=== PATIENT | female | born 1960 | race Caucasian/White ===

== ENCOUNTER 2021-04-21 07:16 | Outpatient (CLI) | payer BC, SELFPAY ==
[2021-04-21 07:32] LABS: Basophils Absolute Auto 0.05 K/mm3 (0.00-0.10); Basophils Percent Auto 0.7 % (0.0-1.0); Eosinophils Absolute Auto 0.32 K/mm3 (0.02-0.50); Eosinophils Percent Auto 4.7 % (1.0-6.0); Hematocrit 44.1 % (35.0-49.0); Hemoglobin 14.3 g/dL (12.0-15.0); Immature Granulocyte Absolute 0.01 K/mm3 (0.00-0.00); Immature Granulocyte Percent A 0.1 % (0.0-0.0); Lymphocytes Absolute Auto 2.36 K/mm3 (1.10-4.50); Lymphocytes Percent Auto 34.5 % (18.0-42.0); Mean Corpuscular HGB Conc 32.4 g/dL (32.0-36.0); Mean Corpuscular Hemoglobin 28.5 pg (27.0-31.0); Mean Corpuscular Volume 87.8 fL (78.0-102.0); Mean Platelet Volume 9.6 fl (9.2-11.8); Monocytes Absolute Auto 0.44 K/mm3 (0.10-0.90); Monocytes Percent Auto 6.4 % (2.0-11.0); Neutrophils Absolute Auto 3.7 K/mm3 (1.7-7.2); Neutrophils Percent Auto 53.6 % (50.0-70.0); Platelet Count Result 207 K/mm3 (150-420); Red Blood Count 5.02 M/mm3 (4.20-5.40); Red Cell Distribution Width 13.2 % (11.6-14.4); White Blood Count 6.8 K/mm3 (4.8-10.8)
[2021-04-21 07:33] LABS: Appearance Urine Clear (Clear); Bilirubin Urine Negative (Negative); Color Urine Light Yellow (Yellow); Glucose Urine UA Negative (Negative); Ketones Urine Negative (Negative); Leukocyte Esterase Ur 1+ LEU/UL (Negative); Nitrate Urine Negative (Negative); Protein Urine Negative (Negative); Specific Grav Ur >= 1.030 (1.010-1.020); Urobilinogen Urine 0.2 mg/dL (0.2-1.0); pH Urine 5.5 (5.0-8.0)
[2021-04-21 07:35] LABS: Add Urine Microscopic? YES; Blood Urine Trace-Intact (Negative)
[2021-04-21 07:51] LABS: Bacteria Urine Trace /hpf; RBC Urine 0-2 /hpf (0-2); Squamous Epithelial Cell Urine Rare /hpf (Few); WBC Urine 0-3 /hpf (0-3)
[2021-04-21 08:38] LABS: Alanine Aminotransferase 28 U/L (14-59); Albumin Level 3.6 g/dL (3.4-5.0); Alkaline Phosphatase 83 U/L (46-116); Anion Gap 8 mmol/L (8-16); Aspartate Amino Transferase 20 U/L (15-37); Bilirubin,Total 0.7 mg/dL (0.00-1.00); Blood Urea Nitrogen 17 mg/dL (7-18); Calcium 8.6 mg/dL (8.5-10.1); Carbon Dioxide 31 mmol/L (21-32); Chloride 106 mmol/L (98-108); Cholesterol 153 mg/dL (0-200); Estimated Glomerular Filt Rate 54; Glucose 92 mg/dL (70-99); HDL Direct 45 mg/dL (40-60); LDL Cholesterol Calculated 87 mg/dL (<130); Osmolality Calculated 301 mOsm/kg (285-295); Potassium 4.3 mmol/L (3.5-5.1); Sodium 145 mmol/L (136-145); Thyroid Stimulating Hormone 3.27 uIU/mL (0.36-3.74); Total Protein 6.9 g/dL (6.4-8.2); Triglycerides 103 mg/dL (0-150)
== END 2021-04-21 07:17 | disposition home or self-care (01) ==
LOC: CHSLAB 07:19
PROVIDERS: PCP Internal Medicine; Visit Provider Internal Medicine
DX: Z00.00 Encounter for general adult medical examination without abnormal findings (principal); R82.90 Unspecified abnormal findings in urine
CPT/HCPCS: 36415; 80053; 80061; 81001; 84443; 85025; 87086; 87088

== ENCOUNTER 2021-05-31 17:12 | Outpatient (CLI) | payer BC, SELFPAY ==
[2021-05-31 18:32] LABS: Influenza A QL RT-PCR Negative (Negative); Influenza B QL RT-PCR Negative (Negative); SARS-CoV-2 RNA PCR Positive (Negative)
== END 2021-05-31 17:13 | disposition home or self-care (01) ==
LOC: CHSLAB 17:16
PROVIDERS: PCP Internal Medicine; Visit Provider Internal Medicine
DX: U07.1 COVID-19 (principal)
CPT/HCPCS: 87502; C9803; U0003; U0005

== ENCOUNTER 2021-06-01 10:59 | Outpatient (CLI) | payer BC, SELFPAY ==
--- NOTE | 2021-06-01 11:10 | PC.NURSE ---
Pt to room 212 amb. A&Ox3. Has no complaints. [facility] consent read and signed. Pt has no questions. Oriented to room. Call brown in reach. Reminded to call with needs.
[2021-06-01 11:24] VITALS: BP 102/64; PULSE 80; RESP 20; O2SAT 95
[2021-06-01] MEDS: diphenhydrAMINE HCl CAP 25 MG CAPSULE PO (11:26)
[2021-06-01] MEDS: ACETAMINOPHEN 325 MG TABLET 650 MG PO (11:26)
[2021-06-01] MEDS: FAMOTIDINE 20 MG TABLET PO (11:26)
--- NOTE | 2021-06-01 13:00 | PC.NURSE ---
Pt has no questions or complaints. Discharged to home amb per self.
== END 2021-06-01 11:00 | disposition home or self-care (01) ==
PROVIDERS: PCP Internal Medicine; Visit Provider Internal Medicine
DX: U07.1 COVID-19 (principal)
CPT/HCPCS: A9270; J7050; M0243; Q0244

== ENCOUNTER 2021-11-02 14:40 | Outpatient (CLI) | payer BC, SELFPAY ==
[2021-11-02 15:06] LABS: Basophils Absolute Auto 0.04 K/mm3 (0.00-0.10); Basophils Percent Auto 0.4 % (0.0-1.0); Eosinophils Absolute Auto 0.18 K/mm3 (0.02-0.50); Eosinophils Percent Auto 1.6 % (1.0-6.0); Hematocrit 40.8 % (35.0-49.0); Hemoglobin 13.3 g/dL (12.0-15.0); Immature Granulocyte Absolute 0.05 K/mm3 (0.00-0.00); Immature Granulocyte Percent A 0.4 % (0.0-0.0); Lymphocytes Absolute Auto 2.54 K/mm3 (1.10-4.50); Lymphocytes Percent Auto 22.5 % (18.0-42.0); Mean Corpuscular HGB Conc 32.6 g/dL (32.0-36.0); Mean Corpuscular Hemoglobin 28.7 pg (27.0-31.0); Mean Corpuscular Volume 87.9 fL (78.0-102.0); Mean Platelet Volume 9.7 fl (9.2-11.8); Monocytes Absolute Auto 0.53 K/mm3 (0.10-0.90); Monocytes Percent Auto 4.7 % (2.0-11.0); Neutrophils Percent Auto 70.4 % (50.0-70.0); Platelet Count Result 352 K/mm3 (150-420); Red Blood Count 4.64 M/mm3 (4.20-5.40); Red Cell Distribution Width 12.1 % (11.6-14.4); White Blood Count 11.3 K/mm3 (4.8-10.8)
[2021-11-02 15:32] LABS: Add Urine Microscopic? YES; Appearance Urine Slightly Cloudy (Clear); Bilirubin Urine 1+ (Negative); Blood Urine 2+ (Negative); Color Urine Yellow (Yellow); Glucose Urine UA Negative (Negative); Ketones Urine Negative (Negative); Leukocyte Esterase Ur Trace (Negative); Nitrate Urine Negative (Negative); Protein Urine 1+ (Negative); Specific Grav Ur >= 1.030 (1.010-1.020); Urobilinogen Urine 0.2 mg/dL (0.2-1.0)
[2021-11-02 15:37] LABS: Bacteria Urine 1+ /hpf; Mucus Urine Few /lpf; Squamous Epithelial Cell Urine Few /hpf (Few); WBC Urine 0-3 /hpf (0-3)
[2021-11-02 16:00] LABS: Alanine Aminotransferase 30 U/L (14-59); Albumin Level 2.9 g/dL (3.4-5.0); Alkaline Phosphatase 87 U/L (46-116); Anion Gap 10 mmol/L (8-16); Aspartate Amino Transferase 20 U/L (15-37); Bilirubin,Total 0.8 mg/dL (0.00-1.00); Blood Urea Nitrogen 16 mg/dL (7-18); Calcium 9.3 mg/dL (8.5-10.1); Carbon Dioxide 28 mmol/L (21-32); Chloride 100 mmol/L (98-108); Estimated Glomerular Filt Rate 57; Free T3 2.03 pg/mL (2.18-3.98); Free T4 Free Thyroxine 1.28 ng/dL (0.76-1.46); Glucose 152 mg/dL (70-99); Lactate Dehydrogenase 166 U/L (81-234); Osmolality Calculated 290 mOsm/kg (285-295); Potassium 3.6 mmol/L (3.5-5.1); Sodium 138 mmol/L (136-145); Thyroid Stimulating Hormone 2.05 uIU/mL (0.36-3.74); Total Protein 8.2 g/dL (6.4-8.2)
[2021-11-02 16:25] LABS: CRP 20.2 mg/dL (0.0-0.9)
[2021-11-05 23:09] LABS: Lyme Disease Ab (IgM), Blot Negative (Negative); Lyme Disease Ab(IgG), Blot Negative (Negative)
[2021-11-09 21:43] LABS: ANCA Screen Negative (Negative)
== END 2021-11-02 14:41 | disposition home or self-care (01) ==
LOC: CHSLAB 14:42
PROVIDERS: PCP Internal Medicine; Visit Provider Internal Medicine
DX: R50.9 Fever, unspecified (principal); M25.50 Pain in unspecified joint; R21 Rash and other nonspecific skin eruption
CPT/HCPCS: 36415; 80053; 81001; 83615; 84439; 84443; 84481; 85025; 86036; 86038; 86140; 86617; 86638; 86666; 86757

== ENCOUNTER 2021-11-03 17:10 | Outpatient (CLI) | payer BC, SELFPAY ==
--- NOTE | ~2021-11-03 | XR_ITS ---
EXAMINATION: XR chest 2V Exam Date/Time: 11/03/2021 17:20 CDT CLINICAL HISTORY: Cough with rash all over body x1wk Comparison: 10/11/06. RESULT: Lines, tubes, and devices: None. Lungs and pleura: Clear. Cardiomediastinal silhouette: Stable cardiomediastinal silhouette. Other: No acute osseous or upper abdominal finding. IMPRESSION: No acute cardiopulmonary process Reviewed, dictated and finalized at location K.
== END 2021-11-03 17:11 | disposition home or self-care (01) ==
LOC: CHSIMG 17:11
PROVIDERS: PCP Internal Medicine; Visit Provider Internal Medicine
DX: R05.9 Cough, unspecified (principal)
CPT/HCPCS: 71046

== ENCOUNTER 2021-11-24 16:54 | Outpatient (CLI) | payer BC, SELFPAY ==
[2021-11-24 17:09] LABS: Basophils Absolute Auto 0.04 K/mm3 (0.00-0.10); Basophils Percent Auto 0.4 % (0.0-1.0); Eosinophils Absolute Auto 0.22 K/mm3 (0.02-0.50); Eosinophils Percent Auto 2.1 % (1.0-6.0); Hematocrit 37.8 % (35.0-49.0); Hemoglobin 12.2 g/dL (12.0-15.0); Immature Granulocyte Absolute 0.03 K/mm3 (0.00-0.00); Immature Granulocyte Percent A 0.3 % (0.0-0.0); Lymphocytes Absolute Auto 2.55 K/mm3 (1.10-4.50); Lymphocytes Percent Auto 24.1 % (18.0-42.0); Mean Corpuscular HGB Conc 32.3 g/dL (32.0-36.0); Mean Corpuscular Hemoglobin 28.9 pg (27.0-31.0); Mean Corpuscular Volume 89.6 fL (78.0-102.0); Mean Platelet Volume 9.6 fl (9.2-11.8); Monocytes Percent Auto 3.8 % (2.0-11.0); Neutrophils Absolute Auto 7.4 K/mm3 (1.7-7.2); Neutrophils Percent Auto 69.3 % (50.0-70.0); Platelet Count Result 234 K/mm3 (150-420); Red Blood Count 4.22 M/mm3 (4.20-5.40); Red Cell Distribution Width 13.3 % (11.6-14.4); White Blood Count 10.6 K/mm3 (4.8-10.8)
[2021-11-24 17:31] LABS: Alanine Aminotransferase 22 U/L (14-59); Alkaline Phosphatase 80 U/L (46-116); Anion Gap 6 mmol/L (8-16); Aspartate Amino Transferase 16 U/L (15-37); Bilirubin,Total 0.8 mg/dL (0.00-1.00); Blood Urea Nitrogen 13 mg/dL (7-18); Calcium 8.7 mg/dL (8.5-10.1); Carbon Dioxide 31 mmol/L (21-32); Chloride 101 mmol/L (98-108); Estimated Glomerular Filt Rate 58; Glucose 144 mg/dL (70-99); Osmolality Calculated 289 mOsm/kg (285-295); Potassium 3.7 mmol/L (3.5-5.1); Sodium 138 mmol/L (136-145); Total Protein 6.7 g/dL (6.4-8.2)
[2021-11-24 17:32] LABS: CRP 11.8 mg/dL (0.0-0.9)
[2021-11-27 22:50] LABS: Anti Cyclic Citrullinated Pept <16 Units (<20)
== END 2021-11-24 16:55 | disposition home or self-care (01) ==
LOC: CHSLAB 16:57
PROVIDERS: PCP Internal Medicine; Visit Provider Internal Medicine
DX: M25.40 Effusion, unspecified joint (principal)
CPT/HCPCS: 36415; 80053; 85025; 86140; 86200; 86638

== ENCOUNTER 2023-03-10 17:29 | Outpatient (CLI) | payer BC, SELFPAY ==
[2023-03-10 17:52] LABS: Appearance Urine Clear (Clear); Basophils Absolute Auto 0.04 K/mm3 (0.00-0.10); Basophils Percent Auto 0.5 % (0.0-1.0); Bilirubin Urine Negative (Negative); Blood Urine 1+ (Negative); Color Urine Light Yellow (Yellow); Eosinophils Absolute Auto 0.28 K/mm3 (0.02-0.50); Eosinophils Percent Auto 3.2 % (1.0-6.0); Glucose Urine UA Negative (Negative); Hematocrit 43.3 % (35.0-49.0); Hemoglobin 13.7 g/dL (12.0-15.0); Immature Granulocyte Absolute 0.02 K/mm3 (0.00-0.00); Immature Granulocyte Percent A 0.2 % (0.0-0.0); Ketones Urine Negative (Negative); Leukocyte Esterase Ur Negative (Negative); Lymphocytes Absolute Auto 3.09 K/mm3 (1.10-4.50); Lymphocytes Percent Auto 35.7 % (18.0-42.0); Mean Corpuscular HGB Conc 31.6 g/dL (32.0-36.0); Mean Corpuscular Hemoglobin 27.7 pg (27.0-31.0); Mean Corpuscular Volume 87.5 fL (78.0-102.0); Monocytes Absolute Auto 0.44 K/mm3 (0.10-0.90); Monocytes Percent Auto 5.1 % (2.0-11.0); Neutrophils Absolute Auto 4.8 K/mm3 (1.7-7.2); Neutrophils Percent Auto 55.3 % (50.0-70.0); Nitrate Urine Negative (Negative); Platelet Count Result 228 K/mm3 (150-420); Protein Urine Negative (Negative); Red Blood Count 4.95 M/mm3 (4.20-5.40); Red Cell Distribution Width 13.5 % (11.6-14.4); Specific Grav Ur >= 1.030 (1.010-1.020); Urobilinogen Urine 0.2 mg/dL (0.2-1.0); White Blood Count 8.7 K/mm3 (4.8-10.8); pH Urine 5.5 (5.0-8.0)
[2023-03-10 17:54] LABS: Add Urine Microscopic? YES; WBC Urine None seen /hpf (0-3)
[2023-03-10 17:55] LABS: Bacteria Urine Trace /hpf; Squamous Epithelial Cell Urine Few /hpf (Few)
[2023-03-10 18:16] LABS: Alanine Aminotransferase 16 U/L (14-59); Albumin Level 3.7 g/dL (3.4-5.0); Alkaline Phosphatase 95 U/L (46-116); Anion Gap 4 mmol/L (8-16); Aspartate Amino Transferase 16 U/L (15-37); Bilirubin,Total 0.9 mg/dL (0.00-1.00); Blood Urea Nitrogen 14 mg/dL (7-18); CRP 0.5 mg/dL (0.0-0.9); Calcium 9.2 mg/dL (8.5-10.1); Carbon Dioxide 34 mmol/L (21-32); Chloride 106 mmol/L (98-108); Cholesterol 196 mg/dL (0-200); Estimated Glomerular Filt Rate 57; Glucose 83 mg/dL (70-99); HDL Direct 42 mg/dL (40-60); LDL Cholesterol Calculated 139 mg/dL (<130); Osmolality Calculated 297 mOsm/kg (285-295); Potassium 4.1 mmol/L (3.5-5.1); Sodium 144 mmol/L (136-145); Thyroid Stimulating Hormone 3.17 uIU/mL (0.36-3.74); Total Protein 7.1 g/dL (6.4-8.2); Triglycerides 75 mg/dL (0-150)
== END 2023-03-10 17:30 | disposition home or self-care (01) ==
LOC: CHSLAB 17:31
PROVIDERS: PCP Internal Medicine; Visit Provider Internal Medicine
DX: Z00.00 Encounter for general adult medical examination without abnormal findings (principal); M79.89 Other specified soft tissue disorders
CPT/HCPCS: 36415; 80053; 80061; 81001; 84443; 85025; 86140

== ENCOUNTER 2023-04-03 12:46 | Outpatient (CLI) | payer BC, SELFPAY ==
--- NOTE | ~2023-04-03 | CT_ITS ---
Non-contrast CT scan of the Abdomen and Pelvis Clinical indication: Microhematuria Technique: 2.5 mm axial scans were obtained through the abdomen and pelvis without intravenous or or al contrast. Dose reduction technique was used on this scan by utilizing automated exposure control a nd iterative reconstruction technique. The dose-length product (DLP) was 558.88 mGy-cm. Findings: Images through the lung bases reveal no abnormalities. There is no evidence of renal or ureteral calculi. The kidneys and the ureters are nondilated. The liver, spleen, pancreas, gallbladder, and adrenals appear normal. There is no aortic aneurysm. There is no evidence of bowel obstruction. Images through the pelvis were performed. There is no evidence of ascites or lymphadenopathy. Urinary bladder unremarkable. No adnexal mass evident. Impression: No etiology for hematuria identified. No significant abnormality identified. Reviewed, dictated and finalized at [facility]. Impression: No etiology for hematuria identified. No significant abnormality identified.
== END 2023-04-03 12:47 | disposition home or self-care (01) ==
LOC: CHSIMG 12:48
PROVIDERS: PCP Internal Medicine; Visit Provider Internal Medicine
DX: R31.9 Hematuria, unspecified (principal)
CPT/HCPCS: 74176

== ENCOUNTER 2023-04-04 17:57 | Outpatient (CLI) | payer BC, SELFPAY ==
[2023-04-04 18:31] LABS: Appearance Urine Clear (Clear); Bilirubin Urine Negative (Negative); Blood Urine Trace-Intact (Negative); Color Urine Light Yellow (Yellow); Glucose Urine UA Negative (Negative); Ketones Urine Negative (Negative); Leukocyte Esterase Ur Trace (Negative); Nitrate Urine Negative (Negative); Protein Urine Negative (Negative); Specific Grav Ur 1.025 (1.010-1.020); Urobilinogen Urine 0.2 mg/dL (0.2-1.0)
[2023-04-04 18:38] LABS: Add Urine Microscopic? YES
[2023-04-04 18:39] LABS: Bacteria Urine 1+ /hpf; RBC Urine 0-2 /hpf (0-2); Transitional Epi Cells Urine Rare /hpf; WBC Urine 0-3 /hpf (0-3)
== END 2023-04-04 17:58 | disposition home or self-care (01) ==
LOC: CHSLAB 17:58
PROVIDERS: PCP Internal Medicine; Visit Provider Internal Medicine
DX: R31.9 Hematuria, unspecified (principal)
CPT/HCPCS: 81001

== ENCOUNTER 2025-01-21 08:42 | Outpatient (CLI) | payer BC, SELFPAY ==
--- OUTSIDE RECORDS SUMMARY | 2025-01-21 08:46 | XMS_ITS | Clinical Summary ---
Author Organization [facility] Address [facility] [place] [address] Care Team Providers Care Rn New Graduate Name Role Phone Dharmesh Centeno MD Primary Care Provider [phone] Ramez Stewart MD Unavailable Allergies Active Allergy Reactions Criticality Noted Date Comments Penicillins Hives 11/05/2018 Medications COMPRESSION STOCKINGS, DME,Indications:V aricose veins of bilateral lower extremities with other complications,Chr onic venous insufficiency Thigh high compression stockings. 20-30 mmHg To be put on while in the OR post procedure. Then follow post procedure directions. 1 Package 1 07/27/19 24 Active COMPRESSION STOCKINGSIndicati ons:Varicose veins of bilateral lower extremities with other complications 20-30 MMHG Compression stockings, knee-high, open or closed toe Dx: I83.893 1 Container 8 04/30/20 24 Active Active Problems Problem Noted Date Diagnosed Date Varicose veins of bilateral lower extremities with other complications 04/18/2023 Chronic venous insufficiency 04/18/2023 Family History Medical History Relation Comments Diabetes Brother Other Brother farm accident Father Osteoarthritis Mother Breast Cancer Neg Hx Relation Status Comments Brother Alive Father Maternal Grandfather Maternal Grandmother Mother Paternal Grandfather Paternal Grandmother Social History Tobacco Use Types Packs/Day Years Used Date Smoking Tobacco: Never Passive Smoke Exposure: Never Smokeless Tobacco: Never Tobacco Cessation:Counseling Given: Not Answered Alcohol Use Standard Drinks/Week Comments Not Currently 0 (1 standard drink = 0.6 oz pur e alcohol) Comments Unknown Sex and Gender Information Value Date Recorded Sex Assigned at Not on file Legal Sex Female 8:04 AM CDT Gender Identity Not on file Sexual Orientation Not on file Last Filed Vital Signs Vital Sign Reading Time Taken Comments Blood Pressure 132/82 04/30/2024 8:39 AM CDT Pulse 74 04/30/2024 8:39 AM CDT Temperature 36.3 C (97.3 F) 09/14/2023 12:10 PM CDT Respiratory Rate 18 04/30/2024 8:39 AM CDT Oxygen Saturation 98% 04/30/2024 8:39 AM CDT Inhaled Oxygen Concentration - - Weight 106.1 kg (234 lb) 04/30/2024 8:39 AM CDT Height 165.1 cm (5' 5) 04/30/2024 8:39 AM CDT Body Mass Index 38.94 04/30/2024 8:39 AM CDT Plan of Treatment Health Maintenance Due Date Last Done Comments Hepatitis C 01/16/1978 DTaP, Tdap and Td Vaccines (1 - Tdap) 01/16/1979 Pneumococcal Vaccine: 50+ Years (1 of 1 - PCV) 01/16/2010 Zoster Vaccines (1 of 2) 01/16/2010 COVID-19 Vaccine (1 - season) 2024 Mammogram Screening 07/22/2026 07/22/2024, 06/28/2024, 06/13/2023, Additional history exists Colorectal Cancer Screening Colonoscopy (10 Years) 12/18/2028 12/18/2018, 06/18/2012 RSV Immunization or 60+ Years (1 - 1-dose 75+ series) 01/16/2035 Dexa Scan (General) Completed 06/13/2023, Meningococcal B Vaccine Aged Out No l onger eligible based on patient's age to complete this topic Meningococcal Vaccine Aged Out No brandon andres eligible based on patient's age to complete this topic RSV Immunizations Under 20 Months Aged Out No longer eligible based on patient's age to complete this topic Procedures Procedure Name Priority Date/Time Associated Diagnosis Comments MG DIAG W ALEXIA LT DIGI Routine 07/22/2024 10:13 AM [employer] Abnormal mammogram BONE DENSITY/DEXA Routine 06/13/2023 2:1 9 PM [employer] Postmenopausal COLONOSCOPY GENERIC (SCAN ORDER) Routine 12/18/2018 from Last 3 Months or Most Recently Relevant to Health Maintenance Results * MG DIAG W ALEXIA LT DIGI (07/22/2024 10:13 AM [employer]) Anatomical Region Laterality Modality Breast Left Mammography, Rad iographic Imaging 07/22/2024 10:1 1 AM [employer] Impressions 07/22/2024 10:13 AM [employer] ===== IMPRESSION: ===== 1. The asymmetry compressed out was due to overlapping glandular tissue. Assessment: ACR BI-RADS 2 - BENIGN FINDING(S) Recommendation: 1:Routine Screening Bilateral Comments: Ordered By: LEE MAYBERRY Interpreted By: Chun Pollack MD, 07/22/2024 10:11 AM Narrative 07/22/2024 10:13 AM [employer] [facility] [address] [place] [address] Examination: Digital left diagnostic mammogram with 3-D tomography Exam Date/Time: 07/22/2024 9:26 AM Reason For Exam: ABNORMAL MAMMOGRAM Comparison: Priors including June 2024, June 2023, April 2021, March 2019. Technique: Digital diagnostic mammography of the left breast was performed in addition to 3-D Tomosynthesis technique. This study was read with the assistance of a computer-aided detection system. Tissue density: There are scattered areas of fibroglandular density. Findings:The asymmetry within the central left breast compresses out after compression is applied. Mammographically this is stable as compared back to March 2019. No suspicious changes are present. Findings reviewed and discussed with the patient in the presence of the technologist, ADINA. us Lee Mayberry [employer] Final Result * BONE DENSITY/DEXA (06/13/2023 2:19 PM [employer]) Anatomical Region Laterality Modality Bone Bone Density 06/14/2023 5:57 AM [employer] Impressions 06/14/2023 5:58 AM [employer] IMPRESSION: WHO Classification: normal. FRAX: No score calculated as all T scores are within normal limits.. Referred By: ABRAHAM MERINO Interpreted By: Stanley Avery MD, 06/14/2023 5:57 AM Narrative 06/14/2023 5:58 AM [employer] Examination: Bone Density Axial Exam Date/Time: 06/13/2023 2:11 PM Reason For Exam: Z78.0 Comparison: None Findings: DEXA bone densitometry The bone mineral density (BMD) was determined by dual-energy x-ray absorptiometry, the results are as follows: AP Lumbar Spine L1 through L4 BMD Patient (GM/SQCM): 1.166 T-Score (Standard deviations from young adult peak bone density): 1.1 Left femoral neck: BMD Patient (GM/SQCM): 0.791 T-Score (Standard deviations from young adult peak bone density): -0.5 Total Left femur: BMD Patient (GM/SQCM): 1.038 T-Score (Standard deviations from young adult peak bone density): 0.8 Recommendations: All patients should ensure an adequate intake of dietary calcium and vitamin D. The NOF recommend adults under the age of 50 need 1000 mg of calcium and 400-800 IU of vitamin D daily. Effective therapy for the prevention and treatment of osteoporosis include biphosphonates. Follow-up: People with diagnosed cases of osteoporosis or at high risk for fracture should have regular bone mineral density test. For patients eligible for Medicare, routine testing is allowed once every 2 years. Testing frequency can be increased to one year for patients who have rapidly progressing disease, those who are receiving or discontinuing medical therapy to restore bone mass, or have additional risk factors. Procedure Note Stanley Avery MD - 06/14/2023 Examination: Bone Density Axial Exam Date/Time: 06/13/2023 2:11 PM Reason For Exam: Z78.0 Comparison: None Findings: DEXA bone densitometry The bone mineral density (BMD) was determined bydual-energy x-ray absorptiometry, the results are as follows: AP Lumbar Spine L1 through L4 BMD Patient (GM/SQCM): 1.166 T-Score (Standard deviations from young adult peak bonedensity): 1.1 Left femoral neck: BMD Patient (GM/SQCM): 0.791 T-Score (Standard deviations from young adult peak bonedensity): -0.5 Total Left femur: BMD Patient (GM/SQCM): 1.038 T-Score (Standard deviations from young adult peak bonedensity): 0.8 Recommendations: All patients should ensure an adequate intake of dietary calcium andvitamin D. The NOF recommend adults under the age of 50 need 1000 mg ofcalcium and 400-800 IU of vitamin D daily. Effective therapy for theprevention and treatment of osteoporosis include biphosphonates. Follow-up: People with diagnosed cases of osteoporosis or at high risk for fractureshould have regular bone mineral density test. For patients eligible forMedicare, routine testing is allowed once every 2 years. Testing frequencycan be increased to one year for patients who have rapidly progressingdisease, those who are receiving or discontinuing medical therapy torestore bone mass, or have additional risk factors. IMPRESSION: WHO Classification: normal. FRAX: No score calculated as all T scores are within normal limits.. 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
[2025-01-21 09:04] LABS: Hematocrit 36.8 % (35.0-42.0); Hemoglobin 11.6 g/dL (11.7-13.8); Immature Granulocyte Percent A 0.1 % (0.0-0.0); Lymphocytes Absolute Auto 2.48 K/mm3 (1.10-4.50); Mean Corpuscular HGB Conc 31.5 g/dL (32-36); Mean Corpuscular Hemoglobin 26.2 pg (27.0-31.0); Mean Corpuscular Volume 83.1 fL (78.0-102.0); Nucleated Red Blood Cells Absolute Auto 0.00 K/mm3 (0.00-0.00); Nucleated Red Blood Cells Perc 0.0 % (0-0.0); Platelet Count Result 234 K/mm3 (150-420); Red Blood Count 4.43 M/mm3 (4.20-5.40); White Blood Count 7.6 K/mm3 (4.8-10.8)
[2025-01-21 09:09] LABS: Add Urine Microscopic? YES; Appearance Urine Clear (Clear); Glucose Urine UA Negative (Negative); Leukocyte Esterase Ur 1+ (Negative); Nitrate Urine Negative (Negative); Specific Grav Ur 1.025 (1.010-1.020)
[2025-01-21 09:40] LABS: Alanine Aminotransferase 17 U/L (6-35); Albumin Level 3.8 g/dL (3.5-5.1); Alkaline Phosphatase 82 U/L (38-126); Anion Gap 4 mmol/L (4-12); Aspartate Amino Transferase 28 U/L (14-36); Bilirubin,Total 0.6 mg/dL (0.2-1.3); Blood Urea Nitrogen 14 mg/dL (7-17); CRP 1.2 mg/dL (<1.0); Calcium 8.9 mg/dL (8.4-10.2); Carbon Dioxide 28 mmol/L (22-30); Chloride 109 mmol/L (98-107); Cholesterol 189 mg/dL (0-200); Estimated Glomerular Filt Rate > 60; Glucose 91 mg/dL (65-110); HDL Direct 39 mg/dL; Osmolality Calculated 292 mOsm/kg (285-295); Potassium 4.4 mmol/L (3.4-5.0); Sodium 141 mmol/L (137-145); Total Protein 6.6 g/dL (6.3-8.2); Triglycerides 80 mg/dL (<150)
[2025-01-21 10:08] LABS: Thyroid Stimulating Hormone 3.260 uIU/mL (0.465-4.680)
== END 2025-01-21 08:43 | disposition home or self-care (01) ==
LOC: CHSLAB 08:44
PROVIDERS: PCP Internal Medicine; Visit Provider Internal Medicine
DX: Z00.00 Encounter for general adult medical examination without abnormal findings (principal); M25.569 Pain in unspecified knee
CPT/HCPCS: 36415; 80053; 80061; 81001; 84443; 85025; 86140